=== PATIENT | male | born 1965 | race Caucasian/White ===

== ENCOUNTER 2021-01-18 07:28 | Outpatient (REF) | payer OTHER, SELFPAY ==
[2021-01-18 08:27] LABS: MANUAL DIFF FLAG NO
[2021-01-18 08:43] LABS: Basophils Percent Auto 0.4 % (0-2); Eosinophils Absolute Auto 0.1 X10*3/uL (0.0-0.4); Hematocrit 34.2 % (42-52); Hemoglobin 11.5 g/dl (14.0-18.0); Imm Gran Abs Auto 0.04 X10*3/uL (0.00-0.03); Imm Gran Pct Auto 0.6 % (0.0-0.4); Lymphocytes Absolute Auto 1.7 X10*3/uL (1.2-4.9); Lymphocytes Percent Auto 24.7 % (20-40); Mean Corpuscular HGB Conc 33.6 g/dl (31.0-36.0); Mean Corpuscular Hemoglobin 30.7 pg (27.0-33.0); Mean Corpuscular Volume 91.2 fL (80-98); Mean Platelet Volume 11.2 fL (9.4-12.4); Monocytes Absolute Auto 0.6 X10*3/uL (0.1-1.2); Monocytes Percent Auto 8.7 % (2-11); Neutrophils Absolute Auto 4.4 X10*3/uL (2.0-8.3); Neutrophils Percent Auto 63.6 % (45-73); Platelet Count 188 X10*3/uL (160-400); Red Blood Count 3.75 X10*6/uL (4.60-5.80); Red Cell Distribution Width 13.3 % (11.0-16.0); White Blood Count 6.9 X10*3/uL (4.8-10.8)
[2021-01-18 08:51] LABS: Alanine Aminotransferase 46 U/L (0-40); Albumin Level 4.7 g/dL (3.5-5.0); Alkaline Phosphatase 60 U/L (39-117); Anion Gap 16 (12-20); Aspartate Amino Transferase 35 U/L (5-37); Bilirubin Total 0.2 mg/dL (0.0-1.0); Blood Urea Nitrogen 38 mg/dL (9-16); Calcium 9.8 mg/dL (8.4-10.2); Carbon Dioxide 25 mmol/L (22-29); Chloride 104 mmol/L (96-108); Cholesterol 179 mg/dL; Estimated Glomerular Filt Rate 34; Glucose Fasting 116 mg/dL (60-99); HDL Cholesterol 38 mg/dL; LDL Cholesterol Calculated 108 mg/dl; Potassium 3.3 mmol/L (3.3-5.1); Sodium 142 mmol/L (135-145); Total Protein 7.6 g/dL (6.5-8.0); Triglycerides 168 mg/dL
[2021-01-18 09:01] LABS: Glucose Urine UA NEG (NEG); Leukocyte Esterase Urine NEG (NEG); Nitrite Urine NEG (NEG); UACC Culture Trigger NO; Urine Blood 1+ (NEG); Urine Ketones NEG (NEG); Urine Protein NEG (NEG-TRACE)
[2021-01-18 09:04] LABS: Appearance Urine CLEAR; Color Urine YELLOW
[2021-01-18 09:13] LABS: Squamous Epithelial Cell Urine TRACE /LPF; WBC Urine 0-2 /HPF (0-4)
[2021-01-18 09:15] LABS: Prostate Specific Antigen 0.74 ng/mL (<0.05-4.0); TSH reflex Free T4 1.14 uIU/mL (0.32-4.0)
== END 2021-01-18 07:29 | disposition home or self-care (01) ==
LOC: HO.LAB 07:28
PROVIDERS: PCP Internal Medicine; Visit Provider Internal Medicine
DX: I10 Essential (primary) hypertension (principal); E78.00 Pure hypercholesterolemia, unspecified; N40.0 Benign prostatic hyperplasia without lower urinary tract symptoms; E55.9 Vitamin D deficiency, unspecified; Z12.5 Encounter for screening for malignant neoplasm of prostate
CPT/HCPCS: 36415; 80053; 80061; 81001; 81003; 82306; 84153; 84443; 85025

== ENCOUNTER 2021-07-24 10:35 | Outpatient (REF) | payer OTHER, SELFPAY ==
[2021-07-24 11:11] LABS: MANUAL DIFF FLAG NO
[2021-07-24 11:40] LABS: Basophils Absolute Auto 0.1 X10*3/uL (0.0-0.2); Basophils Percent Auto 0.8 % (0-2); Eosinophils Absolute Auto 0.2 X10*3/uL (0.0-0.4); Eosinophils Percent Auto 2.8 % (0-4); Hematocrit 35.7 % (42.0-52.0); Hemoglobin 12.2 g/dl (14.0-18.0); Imm Gran Abs Auto 0.02 X10*3/uL (0.00-0.03); Imm Gran Pct Auto 0.3 % (0.0-0.4); Lymphocytes Absolute Auto 1.7 X10*3/uL (1.2-4.9); Lymphocytes Percent Auto 26.2 % (20-40); Mean Corpuscular HGB Conc 34.2 g/dl (31.0-36.0); Mean Corpuscular Hemoglobin 31.3 pg (27.0-33.0); Mean Corpuscular Volume 91.5 fL (80.0-98.0); Mean Platelet Volume 11.1 fL (9.4-12.4); Monocytes Absolute Auto 0.6 X10*3/uL (0.1-1.2); Monocytes Percent Auto 8.9 % (2-11); Neutrophils Absolute Auto 3.9 x10*3/uL (2.0-8.3); Platelet Count 200 X10*3/uL (160-400); Red Cell Distribution Width 13.2 % (11.0-16.0); White Blood Count 6.4 X10*3/uL (4.8-10.8)
[2021-07-24 12:12] LABS: Alanine Aminotransferase 50 U/L (0-40); Albumin Level 4.5 g/dL (3.5-5.0); Alkaline Phosphatase 67 U/L (39-117); Anion Gap 14 (12-20); Aspartate Amino Transferase 41 U/L (5-37); Bilirubin Total 0.4 mg/dL (0.0-1.0); Blood Urea Nitrogen 35 mg/dL (9-16); C Reactive Protein 1.08 mg/dL (< or = 0.50); Calcium 9.3 mg/dL (8.4-10.2); Carbon Dioxide 26 mmol/L (22-29); Chloride 105 mmol/L (96-108); Cholesterol 189 mg/dL; Estimated Glomerular Filt Rate 24; Glucose Fasting 112 mg/dL (60-99); HDL Cholesterol 36 mg/dL; LDL Cholesterol Calculated 117 mg/dl; Potassium 3.5 mmol/L (3.3-5.1); Rheumatoid Factor < 15.0 IU/mL (<15.0); Sodium 141 mmol/L (135-145); Total Protein 7.4 g/dL (6.5-8.0); Triglycerides 182 mg/dL
[2021-07-24 12:17] LABS: Appearance Urine CLEAR; Color Urine YELLOW; Glucose Urine UA NEG (NEG); Leukocyte Esterase Urine NEG (NEG); Nitrite Urine NEG (NEG); Specific Gravity - Urine 1.025 (1.005-1.025); UACC Culture Trigger NO; Urine Blood 1+ (NEG); Urine Ketones NEG (NEG); Urine Protein NEG (NEG-TRACE)
[2021-07-24 12:19] LABS: Erythrocyte Sedimentation Rate 23 MM/HR (0-15)
[2021-07-24 12:21] LABS: Creatinine Urine 155.92 mg/dL; Microalbum/Creatinine Ratio Ur 11.5 ug/mg cr
[2021-07-24 12:34] LABS: TSH reflex Free T4 0.92 uIU/mL (0.32-4.0); Vitamin D 25-OH Total 19.6 ng/mL (>30)
[2021-07-24 12:56] LABS: Squamous Epithelial Cell Urine 1+ /LPF
[2021-07-25 12:47] LABS: Antibody to SS-A Antigen <1.0 NEG AI (<1.0 NEG); Antibody to SS-B Antigen <1.0 NEG AI (<1.0 NEG)
[2021-07-26 07:16] LABS: Anti Nuclear Antibody Screen NEGATIVE (NEGATIVE)
== END 2021-07-24 10:36 | disposition home or self-care (01) ==
LOC: HO.LAB 10:35
PROVIDERS: PCP Internal Medicine; Visit Provider Internal Medicine
DX: I10 Essential (primary) hypertension (principal); E78.00 Pure hypercholesterolemia, unspecified; M25.50 Pain in unspecified joint; N18.9 Chronic kidney disease, unspecified; R79.89 Other specified abnormal findings of blood chemistry; R68.2 Dry mouth, unspecified; E55.9 Vitamin D deficiency, unspecified
CPT/HCPCS: 36415; 80053; 80061; 81001; 82043; 82306; 84443; 85025; 85652; 86038; 86039; 86140; 86235; 86431